=== PATIENT | male | born 1975 | race Hispanic/Latino ===

== ENCOUNTER 2018-05-07 16:07 | Emergency (ER) | payer BC ==
[~2018-05-07] VITALS: Ht 188 cm; Wt 135.6 kg
[2018-05-07] MEDS ORDERED: HYDROCODONE/APAP 10MG-325MG TAB PO ONE (16:30)
[2018-05-07] MEDS ORDERED: KETOROLAC TROMETHAMINE 60 MG/2 ML VIAL IM ONE (16:30)
[2018-05-07] MEDS ORDERED: PREDNISONE 20 MG TAB PO ONE (17:00)
[2018-05-07 17:29] LABS: COLOR,URINE YELLOW (YELLOW)
[2018-05-07 17:30] LABS: CLARITY,URINE HAZY (CLEAR); LEUKOCYTE ESTERASE ,URINE TRACE (NEGATIVE); NITRITE,URINE NEGATIVE (NEGATIVE); PROTEIN,URINE DIPSTICK 2+ (NEGATIVE)
[2018-05-07 17:31] LABS: BILIRUBIN,URINE NEGATIVE (NEGATIVE); KETONES,URINE NEGATIVE (NEGATIVE); URINE UROBILINOGEN 0.2 mg/dL (0.2 - 1)
[2018-05-07 17:37] LABS: BACTERIA,URINE FEW /HPF; EPITHELIAL CELLS,URINE RARE /LPF; MUCUS,URINE FEW (RARE)
[2018-05-07] MEDS ORDERED: SODIUM CHLORIDE 0.9% 1000ML 1,000 ML IV STA (17:47)
[2018-05-07] MEDS ORDERED: ONDANSETRON HCL INJ 2 MG/ML VIAL IV STA (17:47)
[2018-05-07 18:10] LABS: BASOPHILS # (AUTO) 0.1 (0.0-0.1); BASOPHILS % 0.7 % (0.0-1.0); EOSINOPHILS # (AUTO) 0.5 (0.0-0.4); EOSINOPHILS % 4.4 % (0.0-6.0); HEMATOCRIT 40.2 % (38.2-49.6); HEMOGLOBIN 14.2 g/dL (14.0-18.0); LYMPHOCYTES # (AUTO) 3.8 (1.0-3.2); LYMPHOCYTES % 35.2 % (18.0-39.1); MEAN CORPUSCULAR HGB CONC 35.3 g/dL (31-35); MEAN CORPUSCULAR VOLUME 93.5 fL (81-99); MONOCYTES # (AUTO) 0.8 (0.2-0.8); NEUTROPHILS # (AUTO) 5.6 (2.1-6.9); NEUTROPHILS % 52.2 % (38.7-80.0); PLATELET COUNT 265 x10e3/uL (140-360); RED CELL DISTRIBUTION WIDTH 11.5 % (11.7-14.4)
[2018-05-07] MEDS ORDERED: MORPHINE SULFATE INJ 4 MG/ML INJ IV ONE (18:15)
[2018-05-07 18:39] LABS: ALANINE AMINOTRANSFERASE 45 IU/L (0-55); ALBUMIN 3.7 g/dL (3.5-5.0); ALBUMIN/GLOBULIN RATIO 1.2 (0.8-2.0); ALKALINE PHOSPHATASE 84 IU/L (40-150); ANION GAP 12.2 mmol/L (8-16); BLOOD UREA NITROGEN 14 mg/dL (7-26); BUN/CREATININE RATIO 14 (6-25); CALCIUM 9.2 mg/dL (8.4-10.2); CARBON DIOXIDE 23 mmol/L (22-29); CHLORIDE 103 mmol/L (98-107); CREATININE, SERUM 0.98 mg/dL (0.72-1.25); EST GLOMERULAR FILTRATION RATE > 60 ML/MIN (60-); GLUCOSE 119 mg/dL (74-118); POTASSIUM 4.2 mmol/L (3.5-5.1); SODIUM 134 mmol/L (136-145)
--- NOTE | 2018-05-07 19:42 | Diagnostic Imaging Report ---
EXAM: CT ABDOMEN/PELVIS WO DATE: 05/07/2018 6:45 PM INDICATION: Low back pain, stone COMPARISON: None TECHNIQUE: The abdomen and pelvis were scanned using a multidetector helical scanner. Coronal and sagittal reformations were obtained. IV Contrast: 0 ml Isovue 300/370 FINDINGS: Lack of IV contrast decreases sensitivity in evaluating abdominal and pelvic organs. LOWER THORAX: No consolidations LIVER/BILIARY: Hepatic steatosis. Otherwise unremarkable noncontrast appearance. GALLBLADDER: Unremarkable SPLEEN: Unremarkable PANCREAS: Unremarkable ADRENALS: No nodules KIDNEYS: Punctate right inferior and interpolar renal calculi.. No hydronephrosis. There is an exophytic 1.7 cm slightly hyperdense right posterior interpolar renal lesion (HU 26). This is suboptimally assessed without IV contrast. GI TRACT: No wall thickening or evidence of obstruction. Appendix is not seen. 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 IMPRESSION: 1. Punctate right nephrolithiasis without obstructive uropathy. 2. Slightly hyperdense right posterior renal lesion. Recommend follow-up renal ultrasound or CT renal mass protocol to characterize. 3. Hepatic steatosis. Signed by: Dr Joan Tracy MD on 05/07/2018 7:38 PM
[2018-05-07] MEDS ORDERED: SODIUM CHLORIDE 0.9% 50ML 50 ML ONE (21:13)
[2018-05-07] MEDS ORDERED: IOPAMIDOL 370 MG/ML 200 ML INFUS..BTL INJ ONE (21:13)
--- NOTE | 2018-05-07 23:00 | Diagnostic Imaging Report ---
EXAM: CT ABDOMEN/PELVIS W DATE: 05/07/2018 7:51 PM INDICATION: \S\eval lesion seen on right kidney/ RENAL MASS PROTOCOL \S\[id number] \S\[id number] COMPARISON: Earlier same day noncontrast enhanced study TECHNIQUE: The abdomen and pelvis were scanned using a multidetector helical scanner. Coronal and sagittal reformations were obtained. IV Contrast: 100 ml Isovue 300/370 FINDINGS: LOWER THORAX: No consolidations LIVER/BILIARY: Hepatic steatosis. Otherwise unremarkable noncontrast appearance. GALLBLADDER: Unremarkable SPLEEN: Unremarkable PANCREAS: Unremarkable ADRENALS: No nodules KIDNEYS: Punctate right renal calculi better seen on prior. There is an exophytic 1 x 1.7 cm right posterior interpolar renal lesion (HU 59 arterial, 71 nephrographic, 66 delayed phase); it appears homogeneous on nephrographic images. Difficult to assess for enhancement with previously performed noncontrast CT due to differences in scan parameters across two separate studies. No other renal lesions, hydronephrosis or filling defects in the collecting system. GI TRACT: No wall thickening or evidence of obstruction. VESSELS: Unremarkable PERITONEUM/RETROPERITONEUM: No free air or fluid LYMPH NODES: No lymphadenopathy REPRODUCTIVE ORGANS/BLADDER: Decompressed bladder. Otherwise unremarkable. SOFT TISSUES: Unremarkable BONES: Multilevel degenerative changes, with vacuum disc and facet arthrosis worse at L4 through S1. IMPRESSION: Right posterior renal lesion (1.7 x 1. cm) remains technically indeterminate. It is difficult to assess for enhancement with previously performed noncontrast CT due to differences in scan parameters across two separate studies and is either enhancing (small RCC) or hyperattenuating (hyperdense cyst). Recommend nonemergent 3 month follow-up renal ultrasound or CT renal mass protocol to characterize. Discussed with Physician: KATLYN MCKEON MD at 1050 PM on 05/07/18 Signed by: Dr Joan Tracy MD on 05/07/2018 10:57 PM
== END 2018-05-07 23:00 | disposition home or self-care (01) ==
LOC: ER 16:07
DX: R50.9 Fever, unspecified (principal); M54.41 Lumbago with sciatica, right side; X50.0XXA Overexertion from strenuous movement or load, initial encounter; Y92.008 Other place in unspecified non-institutional (private) residence as the place of occurrence of the external cause
CPT/HCPCS: 36415; 74176; 74177; 80053; 81001; 85025; 96372; 99284; J1885; J2270; J2405; J7030; Q9967